=== PATIENT | male | born 1980 | race African-American/Black ===

== ENCOUNTER 2020-12-15 20:48 | Emergency (ER) | payer OTHER, SELFPAY ==
[2020-12-15] MEDS ORDERED: Proparacaine 0.5% Opth 15 ML BOT ONE (23:02)
[2020-12-15] MEDS ORDERED: Fluorescein Opthalmic Strip ONE (23:02)
== END 2020-12-15 23:35 | disposition home or self-care (01) ==
LOC: ERS 20:48
DX: H10.9 Unspecified conjunctivitis (principal); F17.210 Nicotine dependence, cigarettes, uncomplicated
CPT/HCPCS: 99282

== ENCOUNTER 2021-01-02 07:49 | Emergency (ER) | payer SELFPAY ==
[2021-01-02] MEDS ORDERED: Ketorolac Tromethamine 30 MG/ML VIAL ONE (08:18)
== END 2021-01-02 09:25 | disposition home or self-care (01) ==
LOC: ERS 07:49
DX: S46.911A Strain of unspecified muscle, fascia and tendon at shoulder and upper arm level, right arm, initial encounter (principal); F17.210 Nicotine dependence, cigarettes, uncomplicated; X50.9XXA Other and unspecified overexertion or strenuous movements or postures, initial encounter
CPT/HCPCS: 96372; J1885

== ENCOUNTER 2021-07-03 04:31 | Emergency (ER) | payer SELFPAY | END 2021-07-03 05:09 | LOC: ERS 04:31 | DX: Z02.89 Encounter for other administrative examinations (principal); F17.210 Nicotine dependence, cigarettes, uncomplicated | CPT/HCPCS: 99283 ==

== ENCOUNTER 2022-10-03 14:18 | Emergency (ER) | payer SELFPAY ==
[2022-10-03] MEDS ORDERED: Ketorolac Tromethamine 30 MG/ML VIAL ONE (15:47)
== END 2022-10-03 16:06 | disposition home or self-care (01) ==
LOC: ERS 14:18
DX: R07.89 Other chest pain (principal); F17.290 Nicotine dependence, other tobacco product, uncomplicated
CPT/HCPCS: 71045; 93005; 96372; J1885